=== PATIENT | male | born 1955 | race Caucasian/White ===

== ENCOUNTER → 2016-06-26 | Outpatient (CLI) | payer BC ==
[~2016-06-26] MED LIST: FEXO-14 PO; HYDR-3702 PO; TRIA1TAB18 PO
[2016-06-26 08:44] LABS: ALBUMIN 4.9 g/dL (3.4-5.0); TOTAL PROTEIN 8.1 g/dL (6.4-8.5)
== END ==
LOC: LAB 08:07
PROVIDERS: ATTEND Nurse Practitioner Family
DX: E78.2 Mixed hyperlipidemia (principal); I10 Essential (primary) hypertension
CPT/HCPCS: 36415; 80061; 80076

== ENCOUNTER → 2016-09-29 | Outpatient (CLI) | payer BC ==
[2016-09-29 16:33] LABS: ALBUMIN 4.7 g/dL (3.4-5.0); TOTAL PROTEIN 7.3 g/dL (6.4-8.5)
== END ==
LOC: LAB 15:55
PROVIDERS: ATTEND Nurse Practitioner Family
DX: R25.2 Cramp and spasm (principal); I10 Essential (primary) hypertension; E78.2 Mixed hyperlipidemia
CPT/HCPCS: 36415; 80061; 80076